=== PATIENT | male | born 1955 | race Caucasian/White ===

== ENCOUNTER → 2017-05-27 | Outpatient (CLI) | payer MEDICARE, OTHER ==
[2017-05-28 14:45] LABS: CALCIUM 9.6 mg/dL (8.4-10.2); CREATININE, serum 1.55 mg/dL (0.66-1.25); POTASSIUM 4.3 mmol/L (3.4-5.0)
== END ==
LOC: COL.LAB 15:14
PROVIDERS: Family Medicine
DX: I10 Essential (primary) hypertension (principal)

== ENCOUNTER 2017-09-06 13:49 | Emergency (ER) | payer OTHER ==
[~2017-09-06] VITALS: Ht 182.9 cm; Wt 132.3 kg
[2017-09-06 13:52] VITALS: TEMP 97.7
[2017-09-06 14:10] LABS: BASO % 0.5 % (0.0-2.0); EOS # 0.1 (0.0-0.7); EOS % 0.8 % (0-4.0); GRAN # 5.8 (1.4-6.5); GRAN % 79.8 % (42.2-75.2); HEMATOCRIT 47.9 % (42.0-52.0); HEMOGLOBIN 16.6 g/dl (13.5-18.0); LYMPH # 0.8 (1.2-3.4); LYMPH % 11.1 % (20.0-51.0); MEAN CELL VOLUME 87 fl (80.0-100.0); MEAN CORPUSCULAR HEMOGLOBIN 30 pg (27.0-31.0); MEAN CORPUSCULAR HGB CONC 35 g/dl (33.0-37.0); MEAN PLATELET VOLUME 9.8 fl (7.4-10.4); MONO # 0.5 (0.1-0.6); MONO % 7.3 % (1.7-9.3); PLATELET COUNT 210 K/mm3 (130-400); REDCELL DISTRIBUTION WIDTH-CV 13.2 % (11.5-14.5)
[2017-09-06 14:18] LABS: ALBUMIN 4.1 gm/dL (3.5-5.0); BILIRUBIN,TOTAL 0.8 mg/dL (0.0-1.0); CALCIUM 9.1 mg/dL (8.4-10.2); CREATININE, serum 1.57 mg/dL (0.66-1.25); TOTAL PROTEIN 7.3 gm/dL (6.4-8.2)
[2017-09-06] MEDS ORDERED: PROCARDIA XL90 MG PO (14:50)
[2017-09-06] MEDS ORDERED: COREG 6.256.25 MG/TA PO (14:50)
[2017-09-06] MEDS ORDERED: APRESOLINE50 MG PO (14:51)
[2017-09-06] MEDS ORDERED: VALIUM 2MG T2 MG/TAB PO (14:51)
[2017-09-06] MEDS ORDERED: LIPITOR 40MG TA40 MG PO (14:52)
[2017-09-06] MEDS ORDERED: LASIX 20MG TABL20 MG PO (14:52)
[2017-09-06] MEDS ORDERED: ANTIVERT 25MG25 MG PO ×2 (14:52→18:06)
[2017-09-06] MEDS ORDERED: BENICAR 20MG TA20 MG PO (14:53)
[2017-09-06] MEDS ORDERED: LEVEMIR FLEX100 U/ML SQ (14:53)
[2017-09-06 16:11] LABS: PROTHROMBIN TIME 11.9 SECONDS (9.7-12.8)
[2017-09-06 18:43] VITALS: BP 154/102; PULSE 70
== END 2017-09-06 18:45 | disposition home or self-care (01) ==
LOC: COL.ER 13:49
PROVIDERS: Emergency Medicine
DX: H81.10 Benign paroxysmal vertigo, unspecified ear (principal); E11.22 Type 2 diabetes mellitus with diabetic chronic kidney disease; I12.9 Hypertensive chronic kidney disease with stage 1 through stage 4 chronic kidney disease, or unspecified chronic kidney disease; N18.9 Chronic kidney disease, unspecified; E78.5 Hyperlipidemia, unspecified; Z86.73 Personal history of transient ischemic attack (TIA), and cerebral infarction without residual deficits; Z79.4 Long term (current) use of insulin
CPT/HCPCS: J7030

== ENCOUNTER → 2017-11-19 | Outpatient (CLI) | payer MEDICARE ==
[~2017-11-19] MED LIST: ANTIVERT 25MG25 MG PO; APRESOLINE50 MG PO; BENICAR 20MG TA20 MG PO; COREG 6.256.25 MG/TA PO; LASIX 20MG TABL20 MG PO; LEVEMIR FLEX100 U/ML SQ; LIPITOR 40MG TA40 MG PO; PROCARDIA XL90 MG PO; VALIUM 2MG T2 MG/TAB PO
[2017-11-19 15:43] LABS: BASO # 0.1 (0.0-0.2); BASO % 0.5 % (0.0-2.0); EOS # 0.1 (0.0-0.7); EOS % 0.8 % (0-4.0); GRAN # 7.5 (1.4-6.5); GRAN % 78.6 % (42.2-75.2); HEMATOCRIT 51.9 % (42.0-52.0); HEMOGLOBIN 17.8 g/dl (13.5-18.0); LYMPH # 1.1 (1.2-3.4); LYMPH % 11.4 % (20.0-51.0); MEAN CELL VOLUME 87 fl (80.0-100.0); MEAN CORPUSCULAR HEMOGLOBIN 30 pg (27.0-31.0); MEAN CORPUSCULAR HGB CONC 34 g/dl (33.0-37.0); MEAN PLATELET VOLUME 10.8 fl (7.4-10.4); MONO # 0.8 (0.1-0.6); PLATELET COUNT 244 K/mm3 (130-400); RED BLOOD COUNT 5.95 M/mm3 (4.20-5.60); REDCELL DISTRIBUTION WIDTH-CV 13.8 % (11.5-14.5)
[2017-11-19 15:49] LABS: CALCIUM 9.9 mg/dL (8.4-10.2); CREATININE, serum 1.57 mg/dL (0.66-1.25); POTASSIUM 4.2 mmol/L (3.4-5.0)
== END ==
LOC: COL.LAB 14:03
PROVIDERS: Family Medicine
DX: E11.22 Type 2 diabetes mellitus with diabetic chronic kidney disease (principal); N18.9 Chronic kidney disease, unspecified; M79.1 Myalgia

== ENCOUNTER → 2017-12-02 | Outpatient (CLI) | payer MEDICARE ==
[2017-12-02 16:27] LABS: URINE PROTEIN:CREAT RATIO 0.36 (0.00-0.14)
== END ==
LOC: COL.LAB 14:10
PROVIDERS: Family Medicine
DX: E11.22 Type 2 diabetes mellitus with diabetic chronic kidney disease (principal); N18.9 Chronic kidney disease, unspecified

== ENCOUNTER → 2017-12-07 | Outpatient (CLI) | payer MEDICARE | LOC: COL.RAD 10:14 | DX: I67.82 Cerebral ischemia (principal); E04.1 Nontoxic single thyroid nodule; Z86.73 Personal history of transient ischemic attack (TIA), and cerebral infarction without residual deficits | CPT/HCPCS: A9585; Q9967 ==

== ENCOUNTER → 2017-12-16 | Outpatient (CLI) | payer MEDICARE | LOC: COL.RAD 12:04 | DX: E04.1 Nontoxic single thyroid nodule (principal) ==

== ENCOUNTER 2018-03-16 14:30 | Outpatient (RCR) | payer MEDICARE | END 2018-03-22 | disposition home or self-care (01) | LOC: WSC | DX: M16.0 Bilateral primary osteoarthritis of hip (principal); R26.89 Other abnormalities of gait and mobility | CPT/HCPCS: G8978-GP; G8979-GP; G8980-GP ==

== ENCOUNTER 2019-06-08 13:28 | Emergency (ER) | payer MEDICARE ==
[~2019-06-08] VITALS: Ht 182.9 cm; Wt 118.2 kg
[2019-06-08 14:48] LABS: BASO % 0.4 % (0.0-2.0); EOS # 0.1 (0.0-0.7); EOS % 0.8 % (0-4.0); GRAN # 6.1 (1.4-6.5); GRAN % 78.4 % (42.2-75.2); HEMOGLOBIN 17.4 g/dl (13.5-18.0); LYMPH # 0.8 (1.2-3.4); LYMPH % 10.4 % (20.0-51.0); MEAN CELL VOLUME 86 fl (80.0-100.0); MEAN CORPUSCULAR HEMOGLOBIN 29 pg (27.0-31.0); MEAN CORPUSCULAR HGB CONC 34 g/dl (33.0-37.0); MEAN PLATELET VOLUME 9.9 fl (7.4-10.4); MONO # 0.8 (0.1-0.6); MONO % 9.6 % (1.7-9.3); PLATELET COUNT 208 K/mm3 (130-400); RED BLOOD COUNT 5.92 M/mm3 (4.20-5.60); REDCELL DISTRIBUTION WIDTH-CV 13.4 % (11.5-14.5)
[2019-06-08 14:52] LABS: ALBUMIN 3.9 gm/dL (3.5-5.0); BILIRUBIN,TOTAL 1.1 mg/dL (0.0-1.0); C-REACTIVE PROTEIN 1.2 mg/dL (0.0-0.9); CALCIUM 9.4 mg/dL (8.4-10.2); CREATININE, serum 1.6 (0.66-1.25); TOTAL PROTEIN 7.4 gm/dL (6.4-8.2)
[2019-06-08] MEDS ORDERED: DOXYCYCLINE 10100 MG PO (15:29)
[2019-06-08 15:40] VITALS: BP 202/123; PULSE 82; TEMP 97.7
== END 2019-06-08 15:40 | disposition home or self-care (01) ==
LOC: COL.ER 13:28
PROVIDERS: Nurse Practitioner
DX: S91.302A Unspecified open wound, left foot, initial encounter (principal); E11.9 Type 2 diabetes mellitus without complications; I10 Essential (primary) hypertension; Z86.73 Personal history of transient ischemic attack (TIA), and cerebral infarction without residual deficits; Z79.4 Long term (current) use of insulin; Z91.14 Patient's other noncompliance with medication regimen

== ENCOUNTER 2019-07-08 13:40 | Emergency (ER) | payer MEDICARE ==
[~2019-07-08] VITALS: Ht 182.9 cm; Wt 118.2 kg
[~2019-07-08 13:40] MED LIST changes: +DOXYCYCLINE 10100 MG PO
[2019-07-08 13:47] VITALS: TEMP 97.6
[2019-07-08 14:13] LABS: BASO % 0.4 % (0.0-2.0); EOS # 0.1 (0.0-0.7); EOS % 0.6 % (0-4.0); GRAN % 77.3 % (42.2-75.2); LYMPH # 0.8 (1.2-3.4); LYMPH % 10.3 % (20.0-51.0); MEAN CELL VOLUME 87 fl (80.0-100.0); MEAN CORPUSCULAR HGB CONC 34 g/dl (33.0-37.0); MEAN PLATELET VOLUME 10.4 fl (7.4-10.4); MONO # 0.9 (0.1-0.6); MONO % 10.9 % (1.7-9.3); PLATELET COUNT 194 K/mm3 (130-400); RED BLOOD COUNT 6.31 M/mm3 (4.20-5.60); REDCELL DISTRIBUTION WIDTH-CV 13.5 % (11.5-14.5)
[2019-07-08 14:17] LABS: ALANINE AMINOTRANSFERASE 50 U/L (21-72); ALBUMIN 4.2 gm/dL (3.5-5.0); ALKALINE PHOSPHATASE 90 U/L (50-136); ANION GAP 13 mmol/L (7-16); AST,SGOT 175 U/L (15-37); BLOOD UREA NITROGEN 42 mg/dL (9-20); CALCIUM 9.9 mg/dL (8.4-10.2); CARBON DIOXIDE 25 mmol/L (22-30); CHLORIDE 101 mmol/L (98-107); CREATININE, serum 1.79 (0.66-1.25); GLUCOSE 175 mg/dL (74-106); LIPASE 223 U/L (23-300); PHOSPHOROUS 3.4 mg/dL (2.5-4.5); POTASSIUM 3.6 mmol/L (3.4-5.0); SODIUM 140 mmol/L (137-145); TOTAL PROTEIN 7.5 gm/dL (6.4-8.2)
[2019-07-08 14:19] LABS: HEMATOCRIT 54.6 % (42.0-52.0); HEMOGLOBIN 18.6 g/dl (13.5-18.0); MEAN CORPUSCULAR HEMOGLOBIN 29 pg (27.0-31.0)
[2019-07-08 14:25] LABS: PROTHROMBIN TIME 11.8 SECONDS (9.7-12.8)
[2019-07-08 14:28] LABS: PARTIAL THROMBOPLASTIN TIME 35.5 SECONDS (26.0-37.0)
[2019-07-08 15:01] LABS: ALCOHOL(ethanol),MEDICAL < 10 mg/dL
[2019-07-08 15:19] LABS: COLLECTION METHOD CATHETER
[2019-07-08 15:28] LABS: MUCOUS Present /lpf; PH 5 (5-8); SQUAMOUS EPITHELIAL 0-2 /hpf; URINE APPEARANCE Hazy; URINE BACTERIA Rare /hpf; URINE BILIRUBIN Positive (NEGATIVE); URINE BLOOD Negative (NEGATIVE); URINE COLOR Amber; URINE GLUCOSE 2+ (NEGATIVE); URINE KETONE 1+ (NEGATIVE); URINE LEUKOCYTE ESTERASE Negative (NEGATIVE); URINE NITRATE Negative (NEGATIVE); URINE PROTEIN(semi-quant) 2+ (NEGATIVE); URINE RBC 0-2 /hpf; URINE UROBILINOGEN >=4.0 mg/dL (NEGATIVE)
[2019-07-08 18:53] VITALS: BP 162/94; PULSE 88
== END 2019-07-08 18:53 | disposition short-term general hospital (02) ==
LOC: COL.ER 13:40
PROVIDERS: Emergency Medicine
DX: I21.4 Non-ST elevation (NSTEMI) myocardial infarction (principal); I63.9 Cerebral infarction, unspecified; N17.9 Acute kidney failure, unspecified; E11.9 Type 2 diabetes mellitus without complications; I10 Essential (primary) hypertension; Z79.4 Long term (current) use of insulin
CPT/HCPCS: J1644; J7030; J7050

== ENCOUNTER → 2019-08-30 | Outpatient (CLI) | payer MEDICARE ==
[~2019-08-30] MED LIST changes: +AMOXICILLIN 8751 TAB PO; +ASPIRIN 81M81 MG/TA2 PO; +CELEXA 20MG20 MG/TAB PO; -COREG 6.256.25 MG/TA PO; +COREG12.5 MG PO; +DULCOLAX STOOL100 MG PO; +ELIQUIS 5MG PO; +K-DUR20 MEQ PO; -LIPITOR 40MG TA40 MG PO; +LIPITOR 80MG80 MG PO; +MAG-OX 400400 MG/TAB PO; +MICROZIDE12.5 MG PO; +NEURONTIN100 MG/CAP PO; +NORVASC 10MG10 MG PO; +NORVASC 5MG5 MG/TAB PO; +NOVOLOG FLEX100 U/ML SQ; +PRINIVIL10 MG PO; +TYLENOL 325MG325 MG PO; +ZOFRAN ODT4 MG PO
== END ==
LOC: ZCOL.LAB 15:40
DX: L97.209 Non-pressure chronic ulcer of unspecified calf with unspecified severity (principal); L89.899 Pressure ulcer of other site, unspecified stage

== ENCOUNTER → 2019-09-15 | Outpatient (CLI) | payer MEDICARE | LOC: COL.RAD 14:35 | DX: Z01.812 Encounter for preprocedural laboratory examination (principal); I67.82 Cerebral ischemia; G31.9 Degenerative disease of nervous system, unspecified ==

== ENCOUNTER 2019-09-19 13:34 | Emergency (ER) | payer MEDICARE ==
[~2019-09-19] VITALS: Ht 182.9 cm; Wt 109.1 kg
[2019-09-19 13:48] VITALS: TEMP 97.2
[2019-09-19 16:25] VITALS: BP 125/80; PULSE 66
== END 2019-09-19 16:27 | disposition home or self-care (01) ==
LOC: COL.ER 13:34
DX: S09.90XA Unspecified injury of head, initial encounter (principal); S00.81XA Abrasion of other part of head, initial encounter; R40.2412 Glasgow coma scale score 13-15, at arrival to emergency department; Z79.82 Long term (current) use of aspirin; Z79.4 Long term (current) use of insulin; W05.0XXA Fall from non-moving wheelchair, initial encounter

== ENCOUNTER → 2019-09-19 | Outpatient (CLI) | payer MEDICARE | LOC: COL.RAD 12:04 | DX: I63.50 Cerebral infarction due to unspecified occlusion or stenosis of unspecified cerebral artery (principal); I69.354 Hemiplegia and hemiparesis following cerebral infarction affecting left non-dominant side ==

== ENCOUNTER → 2019-09-21 | Outpatient (CLI) | payer MEDICARE, MEDICAID | LOC: ZCOL.LAB 14:24 | DX: L89.899 Pressure ulcer of other site, unspecified stage (principal) ==

== ENCOUNTER → 2019-09-28 | Outpatient (CLI) | payer MEDICARE, MEDICAID | LOC: ZCOL.LAB 14:33 | DX: E11.621 Type 2 diabetes mellitus with foot ulcer (principal); L97.209 Non-pressure chronic ulcer of unspecified calf with unspecified severity; I63.9 Cerebral infarction, unspecified; L89.609 Pressure ulcer of unspecified heel, unspecified stage; E66.9 Obesity, unspecified ==

== ENCOUNTER → 2021-05-14 | Outpatient (CLI) | payer MEDICARE | LOC: COL.RAD 11:00 | DX: M50.322 Other cervical disc degeneration at C5-C6 level (principal) ==

== ENCOUNTER → 2021-12-27 | Outpatient (CLI) | payer MEDICARE | LOC: WSST 12-26 10:30 → COL.RAD 12-26 10:30 | DX: R13.10 Dysphagia, unspecified (principal); Z86.73 Personal history of transient ischemic attack (TIA), and cerebral infarction without residual deficits ==

== ENCOUNTER → 2024-06-22 | Outpatient (REF) | payer MEDICARE | LOC: ZCOL.LAB 14:34 | DX: E11.59 Type 2 diabetes mellitus with other circulatory complications (principal) ==